=== PATIENT | female | born 1990 | race Two or more races ===

== ENCOUNTER 2020-01-04 18:04 | Emergency (ER) | payer MEDICAID, OTHER ==
[~2020-01-04] VITALS: Ht 149.9 cm; Wt 63.0 kg
[2020-01-04 18:12] VITALS: BP 126/81
== END 2020-01-04 19:21 | disposition home or self-care (01) ==
LOC: ER 18:13
DX: M25.531 Pain in right wrist (principal); V00.121A Fall from non-in-line roller-skates, initial encounter; Y93.51 Activity, roller skating (inline) and skateboarding; Y92.89 Other specified places as the place of occurrence of the external cause; Y99.8 Other external cause status
CPT/HCPCS: 73110